=== PATIENT | female | born 1960 | race Caucasian/White ===

== ENCOUNTER → 2024-01-21 | Outpatient (CLI) | payer BC | LOC: MHCPAIN 08:12 | DX: M47.812 Spondylosis without myelopathy or radiculopathy, cervical region (principal); M54.12 Radiculopathy, cervical region | CPT/HCPCS: G0463 ==

== ENCOUNTER 2024-02-27 10:33 | Emergency (ER) | payer BC ==
[~2024-02-27] VITALS: Ht 149.9 cm; Wt 39.5 kg
[2024-02-27 10:45] VITALS: PULSE 88; TEMP 97.6
[2024-02-27 10:45] LABS: BASO # 0.1 K/mm3 (0.0-0.2); BASO % 0.8 % (0.0-2.0); EOS # 0.1 K/mm3 (0.0-0.7); EOS % 1.9 % (0.0-4.0); GRAN % 32.1 % (42.2-75.2); HEMATOCRIT 38.5 % (37.0-47.0); HEMOGLOBIN 12.6 g/dl (12.5-16.0); LYMPH # 3.3 K/mm3 (1.2-3.4); LYMPH % 53.1 % (20.0-51.0); MEAN CELL VOLUME 90 fl (80.0-100.0); MEAN CORPUSCULAR HEMOGLOBIN 29 pg (27-31); MEAN CORPUSCULAR HGB CONC 33 g/dl (33.0-37.0); MEAN PLATELET VOLUME 9.9 fl (7.4-10.4); MONO # 0.7 K/mm3 (0.1-0.6); MONO % 11.6 % (1.7-9.3); PLATELET COUNT 218 K/mm3 (130-400); RED BLOOD COUNT 4.29 M/mm3 (4.10-5.30); REDCELL DISTRIBUTION WIDTH-CV 11.9 % (11.5-14.5)
[2024-02-27] MEDS ORDERED: NS 1,000 ML IV ONE (10:45)
[2024-02-27] MEDS ORDERED: Ondansetron 4 MG/2 ML VIAL IV PRN (10:45)
--- NOTE | 2024-02-27 10:53 | NUR ---
Initial presence: made her presence known to others in the Waiting Room where patient collapsed to make sure everyone was alright. then went to Waiting Area for families in the Emergency Services Room to look in on patient's brother and his . They are awaiting information regarding the status of Breanna's current health status. They thanked for looking in on them and said they were ok at this time. left her card with them and will look in on them when they respond.
[2024-02-27] MEDS ORDERED: Morphine 4 MG/ML VIAL IV PRN (11:00)
[2024-02-27 11:13] LABS: ALBUMIN 4.1 g/dL (3.4-4.8); BILIRUBIN,TOTAL 0.7 mg/dL (0.2-1.2); CALCIUM 9.8 mg/dL (8.4-10.2); CREATININE, serum 0.96 mg/dL (0.57-1.11); POTASSIUM 3.7 mEq/L (3.5-4.5); TOTAL PROTEIN 7.3 g/dl (6.2-8.1)
[2024-02-27] MEDS ORDERED: droPERidol 2.5 MG/ML 2 ML VIAL IV ONE (11:15)
[2024-02-27 12:15] VITALS: BP 113/64; PULSE 94
== END 2024-02-27 12:15 | disposition home or self-care (01) ==
LOC: COL.ER 10:33
PROVIDERS: Personal Emergency Response Attendant
DX: R55 Syncope and collapse (principal); R11.0 Nausea
CPT/HCPCS: J1790; J2270; J2405; J7030

== ENCOUNTER → 2024-02-27 | Outpatient (CLI) | payer BC ==
[~2024-02-27] MED LIST: Iohexol 300 - 10 ML VIAL ONE; Lidocaine PF 2% (20 MG/ML) 2 ML VIAL ONE
== END ==
LOC: MHCPAIN 08:57
DX: M54.12 Radiculopathy, cervical region (principal)
CPT/HCPCS: J1100; Q9967

== ENCOUNTER → 2024-06-24 | Outpatient (CLI) | payer BC | LOC: MHCPAIN 09:48 | DX: M47.22 Other spondylosis with radiculopathy, cervical region (principal); M48.02 Spinal stenosis, cervical region; M54.2 Cervicalgia; M85.88 Other specified disorders of bone density and structure, other site; E03.9 Hypothyroidism, unspecified | CPT/HCPCS: G0463 ==